=== PATIENT | female | born 1995 | race Caucasian/White ===

== ENCOUNTER 2024-04-16 12:10 | Emergency (ER) | payer BC, OTHER ==
[~2024-04-16] VITALS: Ht 175.3 cm; Wt 72.7 kg
[2024-04-16 12:16] VITALS: TEMP 36.8; O2SAT 100
[2024-04-16] MEDS ORDERED: METH-653 MT (14:04)
[2024-04-16 14:23] VITALS: BP 114/72; PULSE 72; RESP 18
[2024-04-16] MEDS: IBUPROFEN 600MG TABLET PO ONE (14:23)
== END 2024-04-16 15:12 | disposition home or self-care (01) ==
LOC: ER 12:10
DX: M54.50 Low back pain, unspecified (principal)
CPT/HCPCS: 99283